=== PATIENT | female | born 1990 | race Asian ===

== ENCOUNTER 2019-08-03 11:08 | Emergency (ER) | payer OTHER ==
[2019-08-03 12:06] LABS: HEMATOCRIT 44.4 % (37.0-47.0); HEMOGLOBIN 14.1 g/dL (12.5-16.0); MEAN CELL VOLUME 92 fl (78-100); MEAN CORPUSCULAR HEMOGLOBIN 29 pg (27-31); MEAN CORPUSCULAR HGB CONC 32 g/dL (33-37); PLATELET COUNT 146 K/mm3 (130-400); RED BLOOD COUNT 4.85 M/mm3 (4.10-5.30); RED CELL DISTRIBUTION WIDTH 13.7 % (11.5-14.5); WHITE BLOOD COUNT 3.6 K/mm3 (4.8-10.8)
[2019-08-03 12:23] LABS: MEAN PLATELET VOLUME 12.2 fl (7.4-10.4); NEUTROPHILS 42 % (42-75)
[2019-08-03 12:24] LABS: LYMPHOCYTE 41 % (20-51); MONOCYTE 16 % (3-10)
[2019-08-03 12:52] VITALS: BP 109/73
== END 2019-08-03 12:54 | disposition home or self-care (01) ==
LOC: ED 11:08
PROVIDERS: Family Medicine
DX: J10.1 Influenza due to other identified influenza virus with other respiratory manifestations (principal)